=== PATIENT | female | born 1965 | race Caucasian/White ===

== ENCOUNTER 2024-03-19 15:37 | Emergency (ER) | payer OTHER ==
[~2024-03-19] VITALS: Ht 154.9 cm; Wt 66.0 kg
[~2024-03-19 15:37] MED LIST: DIAZ5TAB PO; HYDR-4383 PO; NAPR-1154 PO
[2024-03-19 16:00] VITALS: BP 175/94; PULSE 71; RESP 16; TEMP 98.8; O2SAT 95
== END 2024-03-19 17:21 | disposition home or self-care (01) ==
LOC: ER 15:37
DX: S67.01XA Crushing injury of right thumb, initial encounter (principal); J45.909 Unspecified asthma, uncomplicated; Z79.899 Other long term (current) drug therapy; Z98.890 Other specified postprocedural states; Z90.710 Acquired absence of both cervix and uterus; X58.XXXA Exposure to other specified factors, initial encounter; Y93.89 Activity, other specified; Y92.89 Other specified places as the place of occurrence of the external cause; Y99.8 Other external cause status
CPT/HCPCS: 29125; 73140; 99283